=== PATIENT | female | born 2000 | race American Indian/Alaskan Native ===

== ENCOUNTER 2019-11-17 16:30 | Emergency (ER) | payer BC ==
--- NOTE | 2019-11-17 16:40 | Event Note ---
ED Screening Note Date of service: 11/17/19 Time: 16:37 ED Screening Note: 18 y o presents to ED at 10 weeks gestation complaining of abd pain pelvic pain , pressure pain denies vag bleed, dysuria ob: life cyce called lif[facility], was told to come to ED This initial assessment/diagnostic orders/clinical plan/treatment(s) is/are subject to change based on patients health status, clinical progression and re- assessment by fellow clinical providers in the ED. Further treatment and workup at subsequent clinical providers discretion. Patient/guardian urged not to elope from the ED as their condition may be serious if not clinically assessed and managed. Initial orders include: labs, ua, US IVF
[2019-11-17 16:42] VITALS: BP 121/76
--- NOTE | 2019-11-17 16:55 | Emergency Department Report ---
ED Abdominal Pain HPI - General Chief Complaint: Abdominal Pain Stated Complaint: 12 WKS /ABD PAIN Time Seen by Provider: 11/17/19 16:54 Source: patient Mode of arrival: Ambulatory Limitations: No Limitations - History of Present Illness Initial Comments: Patient is a 18-year-old -[place] female who comes into the ER for abdominal pain during . She she reported in triage that her OB sent her to the emergency room for an ultrasound. However, she told me she does not have an OB. Patient has suprapubic pain. Patient denies vaginal bleeding or discharge. She denies dysuria. No fever or chills. This is her first pregnanc yAnnalisa HART Complaint: abdominal pain Severity scale (0 -10): 7 - Related Data Previous Rx's Medication Instructions Recorded Last Taken Type Nitrofurantoin Weld/M-Cryst 100 mg PO Q12HR #10 capsule 11/17/19 Unknown Rx [Macrobid CAP] Allergies Allergy/AdvReac Type Severity Reaction Status Date / Time No Known Allergies Allergy Unverified 11/17/19 16:31 ED Review of Systems ROS: Stated complaint: 12 WKS /ABD PAIN Other details as noted in HPI Comment: All other systems reviewed and negative ED Past Medical Hx - Past Medical History Previous Medical History?: No - Surgical History Past Surgical History?: Yes Additional Surgical History: ARM - Family History Family history: no significant - Social History Smoking Status: Never Smoker Substance Use Type: None - Medications Home Medications: Home Medications Medication Instructions Recorded Confirmed Last Taken Type Nitrofurantoin Weld/M-Cryst 100 mg PO Q12HR #10 capsule 11/17/19 Unknown Rx [Macrobid CAP] ED Physical Exam - General Limitations: No Limitations General appearance: alert, in no apparent distress - Head Head exam: Present: atraumatic, normocephalic - Eye Eye exam: Present: normal appearance - ENT ENT exam: Present: mucous membranes moist - Neck Neck exam: Present: normal inspection - Respiratory Respiratory exam: Present: normal lung sounds bilaterally. Absent: respiratory distress - Cardiovascular Cardiovascular Exam: Present: regular rate, normal rhythm. Absent: systolic murmur, diastolic murmur, rubs, gallop - GI/Abdominal GI/Abdominal exam: Present: soft, normal bowel sounds - Extremities Exam Extremities exam: Present: normal inspection - Back Exam Back exam: Present: normal inspection - Neurological Exam Neurological exam: Present: alert, oriented X3 - Psychiatric Psychiatric exam: Present: normal affect, normal mood - Skin Skin exam: Present: warm, dry, intact, normal color. Absent: rash ED Course Vital Signs 11/17/19 16:38 Temperature 98.3 F Pulse Rate 76 Respiratory 18 Rate Blood Pressure 121/76 Blood Pressure 121/76 [Right] O2 Sat by Pulse 100 Oximetry ED Medical Decision Making - Lab Data Result diagrams: 11/17/19 17:07 11/17/19 17:07 - Radiology Data Radiology results: report reviewed - Medical Decision Making Labs 11/17/19 11/17/19 11/17/19 17:07 17:07 17:07 WBC 8.5 RBC 4.27 Hgb 13.2 Hct 37.8 MCV 89 MCH 31 MCHC 35 H RDW 14.5 Plt Count 250 Lymph % (Auto) 21.9 Weld % (Auto) 7.5 H Eos % (Auto) 0.5 Baso % (Auto) 0.8 Lymph # 1.9 Weld # 0.6 Eos # 0.0 Baso # 0.1 Seg Neutrophils % 69.3 Seg Neutrophils # 5.9 Sodium 138 Potassium 4.0 Chloride 100.3 Carbon Dioxide 24 Anion Gap 18 BUN 6 L Creatinine 0.6 L Estimated GFR > 60 BUN/Creatinine Ratio 10 Glucose 87 Calcium 9.4 HCG, Quant 89208 H Blood Type Ord Rhogam Gestat Weeks 11/17/19 17:07 WBC RBC Hgb Hct MCV MCH MCHC RDW Plt Count Lymph % (Auto) Weld % (Auto) Eos % (Auto) Baso % (Auto) Lymph # Weld # Eos # Baso # Seg Neutrophils % Seg Neutrophils # Sodium Potassium Chloride Carbon Dioxide Anion Gap BUN Creatinine Estimated GFR BUN/Creatinine Ratio Glucose Calcium HCG, Quant Blood Type O POSITIVE Ord Rhogam Gestat Weeks Rh pos Vital Signs - 24 hr 11/17/19 16:38 Temperature 98.3 F Pulse Rate 76 Respiratory 18 Rate Blood Pressure 121/76 Blood Pressure 121/76 [Right] O2 Sat by Pulse 100 Oximetry Labs noted. UA noted. Ultrasound noted. Rh+ Patient given Rocephin and normal saline in the ER. Patient being discharged to home with Macrobid twice daily. She needs to see an [employer] within 48 hours. Patient verbalizes understanding. - Differential Diagnosis Rule out ectopic, rule out miscarriage, rule out UTI Critical care attestation.: If time is entered above; I have spent that time in minutes in the direct care of this critically ill patient, excluding procedure time. ED Disposition Clinical Impression: , UTI (urinary tract infection) Disposition: TO HOME OR SELFCARE Is pt being admited?: No Does the pt Need Aspirin: No Condition: Stable Instructions: (ED) Additional Instructions: TYLENOL FOR PAIN PELVIC REST AVOID ALCOHOL FOLLOW UP WITH OBGYN IN 48 HOURS FOR RECHECK REFERRAL BELOW BLOOD TYPE RH POS HCG 35775 US MEASURES [id number] MACROBID ORDERED Referrals: JAYLENE MILLER MD [Staff Physician] - 3-5 Days Time of Disposition: 18:11
[2019-11-17 17:16] LABS: Basophils # (Auto) 0.1 K/mm3 (0.0-0.1); Basophils % (Auto) 0.8 % (0.0-1.8); Eosinophils % (Auto) 0.5 % (0.0-4.3); Hematocrit 37.8 % (30.3-42.9); Hemoglobin 13.2 gm/dl (10.1-14.3); Lymphocytes # (Auto) 1.9 K/mm3 (1.2-5.4); Lymphocytes % (Auto) 21.9 % (13.4-35.0); Mean Corpuscular HGB Conc 35 % (30-34); Mean Corpuscular Volume 89 fl (79-97); Monocytes # (Auto) 0.6 K/mm3 (0.0-0.8); Monocytes % (Auto) 7.5 % (0.0-7.3); Platelet Count 250 K/mm3 (140-440); Red Blood Count 4.27 M/mm3 (3.65-5.03); Red Cell Distribution Width 14.5 % (13.2-15.2)
[2019-11-17 17:46] LABS: BUN/Creatinine Ratio 10; Blood Urea Nitrogen 6 mg/dL (7-17); Calcium 9.4 mg/dL (8.4-10.2); Hemolysis Index 16
[2019-11-17 18:19] LABS: Bilirubin,Urine NEG (Negative); Blood,Urine SM (Negative); Color,Urine Yellow (Yellow); Mucus,Urine 3+ /HPF; Protein,Urine <15 mg/dL mg/dL (Negative); Urobilinogen,Urine < 2.0 mg/dL (<2.0)
[2019-11-17] MEDS ORDERED: SODIUM CHLORIDE 0.9% 1000 ML 1,000 ML IV ONE (18:21)
[2019-11-17] MEDS ORDERED: cefTRIAXone/NS 1 GM/50 ML 1 GM/50 ML BAG IV ONE (18:21)
--- NOTE | 2019-11-17 18:42 | Ultrasound Report ---
ULTRASOUND OBSTETRIC INDICATION / CLINICAL INFORMATION: pelv pain. TECHNIQUE: Transvaginal imaging was performed. COMPARISON: None available. FINDINGS: GESTATIONAL SAC: Well-defined oval shape and intrauterine in location. YOLK SAC: No significant abnormality. EMBRYO/FETUS: No significant abnormality. - [place]-Rump Length = 3.1 cm = 10 weeks, 0 day(s). - Heart Rate, beats per minute (if present) = 160 ADNEXA: No significant abnormality. FREE FLUID: None. ADDITIONAL FINDINGS: Small subchorionic hemorrhage is noted IMPRESSION: 1. Single, living intrauterine with estimated sonographic age of 10 weeks, 0 day(s). Signer Name: Ignacio Kaur MD Signed: 11/17/2019 6:38 PM Workstation Name: [id number]
== END 2019-11-17 18:57 | disposition home or self-care (01) ==
LOC: ED 16:30
DX: O23.41 Unspecified infection of urinary tract in pregnancy, first trimester (principal); Z3A.12 12 weeks gestation of pregnancy
CPT/HCPCS: 36415; 76801; 80048; 81001; 84702; 85025; 86900; 86901; 87076; 87086; 87186; 96372; 99284